=== PATIENT | male | born 1990 | race Caucasian/White ===

== ENCOUNTER 2021-06-12 11:17 | Emergency (ER) | payer BC ==
[2021-06-12] MEDS ORDERED: Morphine 4 MG/ML VIAL ONE (12:01)
[2021-06-12] MEDS ORDERED: Lidocaine 1% PF 5 ML VIAL ONE (12:10)
[2021-06-12] MEDS ORDERED: Bupivacaine 0.25% 10 ML VIAL ONE (12:10)
[2021-06-12] MEDS ORDERED: Boostrix 0.5 ML (Tdap) VIAL ONE (12:14)
== END 2021-06-12 15:52 | disposition home or self-care (01) ==
LOC: ERS 11:17
DX: S68.121A Partial traumatic metacarpophalangeal amputation of left index finger, initial encounter (principal); S68.123A Partial traumatic metacarpophalangeal amputation of left middle finger, initial encounter; F17.290 Nicotine dependence, other tobacco product, uncomplicated; Z79.899 Other long term (current) drug therapy; W27.0XXA Contact with workbench tool, initial encounter
CPT/HCPCS: 12001; 90471; 90715; 96374; J2270; S0020